=== PATIENT | male | born 1995 | race Caucasian/White ===

== ENCOUNTER 2017-02-16 12:21 | Emergency (ER) | payer OTHER ==
[~2017-02-16] VITALS: Ht 170.2 cm; Wt 112.5 kg
--- OUTSIDE RECORDS SUMMARY | 2017-02-16 12:28 | XMS REPORT | Continuity of care Document ---
Author Author GENERATED, SYSTEM Organization Unknown Address Unknown Phone Unavailable Purpose Hospital Course Allergies, Adverse Reactions, Alerts * Latex Allergy has not been assessed. * IV Contrast Allergy has not been assessed. Problems No relevant problems exist. Procedures No relevant procedures performed. Medication Medication reconciliation has not been performed. Results
--- OUTSIDE RECORDS SUMMARY | 2017-02-16 12:28 | XMS REPORT | Continuity of care Document ---
Author Author GENERATED, SYSTEM Organization Unknown Address Unknown Phone Unavailable Purpose Hospital Course Allergies, Adverse Reactions, Alerts * Latex Allergy has not been assessed. * IV Contrast Allergy has not been assessed. Problems No relevant problems exist. Procedures No relevant procedures performed. Medication Medication reconciliation has not been performed. Results Chemistry from 03/02/2014 2:30 AMSODIUM 135 MMOL/L L (136-145 MMOL/L) POTASSIUM 4.3 MMOL/L (3.5-5.1 MMOL/L) CHLORIDE 99 MMOL/L (98-107 MMOL/L) TCO2 29.6 MMOL/L (21.0-32.0 MMOL/L) ANION GAP 6.4 MMOL/L L (8.0-16.0 MMOL/L) BUN 13 MG/DL (7-18 MG/DL) CREATININE 0.78 MG/DL (0.63-1.13 MG/DL) BUN/CREATININE RATIO 16.7 (9.1-17.0 ) GLUCOSE 93 MG/DL (65-99 MG/DL) GFR EST NON AFR HONDURAN >=90 ML/MIN GFRA EST AFR AMER >=90 ML/MIN CALCIUM 9.0 MG/DL (8.5-10.1 MG/DL) BILIRUBIN TOTAL 0.34 MG/DL (0.20-1.00 MG/DL) TOTAL PROTEIN 7.9 GM/DL (6.4-8.2 GM/DL) ALBUMIN 4.3 GM/DL (3.4-5.0 GM/DL) GLOBULIN 3.6 GM/DL H (2.3-3.5 GM/DL) A/G RATIO 1.2 MG/DL L (1.5-2.2 MG/DL) ALK PHOS 102 U/L (46-116 U/L) ALT (SGPT) 34 U/L (12-78 U/L) AST (SGOT) 21 U/L (15-37 U/L) Hematology from 03/02/2014 2:30 AMWBC 11.6 X10e3/UL H (3.6-11.2 X10e3/UL) RBC 5.20 X10e6/UL (4.06-5.63 X10e6/UL) HEMOGLOBIN 15.7 G/DL (12.5-16.3 G/DL) HEMATOCRIT 45.8 % (36.7-47.1 %) MCV 88.1 FL (80.0-100.0 FL) MCH 30.1 PG (27.0-33.0 PG) MCHC 34.2 G/DL (32.0-36.0 G/DL) RDW 14.0 % (12.3-17.0 %) RDWSD 42.9 (37.1-47.8 ) PLATELET 298 X10e3/UL (159-386 X10e3/UL) MPV 7.9 FL (7.4-10.4 FL) AUTOMATED DIFF PERFORMED SEGS 57.8 % LYMPHOCYTES 32.8 % MONOCYTES 7.4 % EOSINOPHILS 1.4 % BASOPHILS 0.6 % ABSOLUTE NEUTROPHILS 6.7 X10e3/UL (1.8-7.8 X10e3/UL) ABSOLUTE LYMPHOCYTES 3.8 X10e3/UL H (1.0-3.0 X10e3/UL) ABSOLUTE MONOCYTES 0.9 X10e3/UL (0.3-1.0 X10e3/UL) ABSOLUTE EOSINOPHILS 0.2 X10e3/UL (0.0-0.5 X10e3/UL) ABSOLUTE BASOPHILS 0.1 X10e3/UL (0.0-0.2 X10e3/UL)
[2017-02-16 12:29] VITALS: Ht 170.2 cm; Wt 112.5 kg
--- OUTSIDE RECORDS SUMMARY | 2017-02-16 12:29 | XMS REPORT ---
Author Author GENERATED, SYSTEM Organization Unknown Address Unknown Phone Unavailable Care Team Providers Care Thread Marker Name Role Phone UNASSIGNED DOCTOR MD CHICO DOCTOR PP [phone] Reason For Visit Chief Complaint WORK COMP-WRIST CONTUSION Social History Functional Status Vital Signs Results DX Radiology from 08/11/2016 11:40 PMFOREARM LEFT 2 VIEWS History: forearm/wrist pain . Priors: None. Findings: There is no acute fracture. The wrist and elbow are in grossly normal alignment. Impression: Unremarkable radiographs of the left forearm. Electronically signed by: Nathan Tam MD Dictated: 08/12/2016 09:00 WRIST LEFT 3 VIEWS History: forearm/wrist pain . Technique: 3 view wrist Findings: There is no acute fracture or subluxation. The distal radius and ulna are intact. The carpals are normally aligned. Impression: Unremarkable radiographs of the left wrist. Electronically signed by: Nathan Tam MD Dictated: 08/12/2016 08:59 Problems Encounter Diagnosis No relevant problems exist. Encounters Encounter Diagnosis No relevant problems exist. Plan of Care Procedures No relevant procedures performed. Immunizations No immunizations administered or ordered. Hospital Course Hospital Discharge Instructions Allergies, Adverse Reactions, Alerts * Latex Allergy has not been assessed. * IV Contrast Allergy has not been assessed. Medication Medication reconciliation has not been performed.
--- OUTSIDE RECORDS SUMMARY | 2017-02-16 12:29 | XMS REPORT ---
Author Author GENERATED, SYSTEM Organization Unknown Address Unknown Phone Unavailable Care Team Providers Care Coordinator Of Online Programs Name Role Phone DO MERCHANT ROBERT PP Unavailable Reason For Visit Chief Complaint CONGESTION X 3 DAYS Social History Functional Status Vital Signs Results Problems Encounter Diagnosis No relevant problems exist. [...]
--- OUTSIDE RECORDS SUMMARY | 2017-02-16 12:29 | XMS REPORT ---
Author Author Zenia Infante Organization [facility] Address [address] [place], [place] [address] Care Team Providers Care Vp Clinical Name Role Phone Zenia Infante Unavailable [phone] PROBLEMS Type Condition ICD9-CM Code TIP81-VX Code Onset Dates Condition Status SNOMED Code Problem Hypertension I10 Active 68263724 Assessment Eczema L30.9 Dec, Active 94439369 ALLERGIES Substance Reaction Event Type Date Status N.K.D.A. Unknown Non Drug Allergy Dec, Unknown SOCIAL HISTORY No smoking Hx information available PLAN OF CARE VITAL SIGNS Height 5 ft 5 in in 2016-12-30 Weight 251 lb 8 oz lbs 2016-12-30 BMI 41.85 kg/m2 2016-12-30 Temperature 98.8 degrees Fahrenheit 2016-12-30 Heart Rate 92 /min 2016-12-30 Respiratory Rate 18 /min 2016-12-30 Oximetry 97 % 2016-12-30 Blood pressure systolic 130 mm Hg 2016-12-30 Blood pressure diastolic 70 mm Hg 2016-12-30 MEDICATIONS Medication Instructions Dosage Frequency Start Date End Date Duration Status Triamcinolone Acetonide 0.1 % Externally Twice a day 1 application to affected area 12h Dec, 10 days Active RESULTS No Results PROCEDURES Procedure Date Ordered Related Diagnosis Body Site OFFICE VISIT NEW PATIENT LEVEL 1 December 30, 2016 IMMUNIZATIONS No Known Immunizations
--- OUTSIDE RECORDS SUMMARY | 2017-02-16 12:29 | XMS REPORT | Referral Summary ---
Author Author [facility] Organization [facility] Address Unknown Phone Unavailable Care Team Providers Care Toll Collector Name Role Phone Sanjay Lemons Primary Care Physician [phone] Encounter [facility] [id number] Date(s): 09/13/15 - 09/13/[address] [facility] [address] [place] [address] Discharge Diagnosis: Tobacco user Discharge Diagnosis: Cough Discharge Diagnosis: Nasal congestion Discharge Disposition: 01-Home or Self Care Attending Physician: Humphrey Mercado MD Admitting Physician: Humphrey Mercado MD Vital Signs Most recent to 1 oldest [Reference Range]: Temperature Oral 36.8 degC [35.8-37.3 degC] (09/13/15 5:27 PM) Peripheral Pulse 95 bpm Rate [60-100 bpm] (09/13/15 6:31 PM) Heart Rate Monitored 80 bpm [60-100 bpm] (09/13/15 6:15 PM) Respiratory Rate 20 br/min [14-20 br/min] (09/13/15 6:31 PM) Blood Pressure 133/84 mmHg [90-140/60-90 mmHg] (09/13/15 6:31 PM) SpO2 97 % (09/13/15 6:31 PM) Problem List No Known Problems Allergies, Adverse Reactions, Alerts No Known Medication Allergies Medications minocycline 100 mg oral tablet 100 mg 1 tabs, Oral, BID, X 14 days, # 28 tabs, 0 Refill(s) Start Date: 09/13/15 Stop Date: 09/27/15 Status: Ordered Promethazine with Codeine 6.25 mg-10 mg/5 mL oral syrup 5 mL, Oral, q4hr, as needed for cough, # 120 mL, 0 Refill(s) Start Date: 09/13/15 Status: Ordered Results No data available for this section Immunizations No data available for this section Procedures No data available for this section Social History Social History Type Response Smoking Status Never smoker Assessment and Plan No data available for this section
--- OUTSIDE RECORDS SUMMARY | 2017-02-16 12:29 | XMS REPORT ---
Author Author GENERATED, SYSTEM Organization Unknown Address Unknown Phone Unavailable Care Team Providers Care Machine Captain Name Role Phone DO MERCHANT ROBERT PP Unavailable Reason For Visit Chief Complaint HARD TO BREATH SORE THROAT Social History Functional Status Vital Signs Results [...]
--- OUTSIDE RECORDS SUMMARY | 2017-02-16 12:29 | XMS REPORT ---
Author Author GENERATED, SYSTEM Organization Unknown Address Unknown Phone Unavailable Care Team Providers Care Jewelry Inspector Name Role Phone UNASSIGNED DOCTOR MD CHICO DOCTOR PP [phone] Reason For Visit Chief Complaint ACUTE BRONCHITIS, POSSIBLE EARLY RLL,COMUNITY ACQUIRED PNEUMONIA Social History Functional Status Vital Signs Results DX Radiology from 10/13/2016 10:22 AMCHEST 2 VIEWS History: cough. Technique: 2 VIEW CHEST Priors: 08/02/2016 Findings: Since prior study there has been development of a mild right lower lobe pneumonia. The heart size within normal limits. The left lung appears clear. No pneumothorax or pleural effusions identified Impression: Mild right lower lobe pneumonia. Electronically signed by: Nathan Tam MD Dictated: 10/13/2016 11:39 Problems Encounter Diagnosis No relevant problems exist. [...]
--- OUTSIDE RECORDS SUMMARY | 2017-02-16 12:29 | XMS REPORT | Continuity of Care Document ---
Author Author [facility] Organization [facility] Address Unknown Phone Unavailable Allergies Active Description Code Type Severity Reaction Onset Reported/Identified Relationship to Patient Clinical Status Yes No Known Medication Allergies NKMA N/A N/A 09/13/2015 Medications Problems Date Dx Coded Attending Type Code Diagnosis Diagnosed By 09/22/2015 Humphrey Mercado MD Final F17.210 Nicotine dependence, cigarettes, uncomplicated 09/22/2015 Humphrey Mercado MD Reason R05 Cough 09/22/2015 Humphrey Mercado MD Final R09.81 Nasal congestion 01/02/2017 CHELE CALABRESE [id number] Insect bite (nonvenomous), left knee, initial encounter 01/02/2017 CHELE CALABRESE Z29239 Personal history of nicotine dependence Procedures Results Encounters ACCT No. Visit Date/Time Discharge Status Pt. Type Provider Facility Loc./Unit Complaint [id number] 09/13/2015 16:37:00 2014 18:32:00 DIS Emergency Humphrey Mercado MD [facility] ED Conggestion and cough
--- OUTSIDE RECORDS SUMMARY | 2017-02-16 12:29 | XMS REPORT ---
Author Author GENERATED, SYSTEM Organization Unknown Address Unknown Phone Unavailable Care Team Providers Care Integration Aide Name Role Phone UNASSIGNED DOCTOR , DOCTOR PP [phone] Reason For Visit Chief Complaint POSSIBLE SPIDER BITE, LEFT LEG Social History Functional Status Vital Signs Results [...]
--- OUTSIDE RECORDS SUMMARY | 2017-02-16 12:29 | XMS REPORT ---
Author Author GENERATED, SYSTEM Organization Unknown Address Unknown Phone Unavailable Care Team Providers Care Auto Body Builder Apprentice Name Role Phone DO MERCHANT ROBERT PP Unavailable Reason For Visit Chief Complaint CONGESTION X 3 DAYS,LEFT BEFORE TRIAGE Social History Functional Status Vital Signs Results [...]
--- OUTSIDE RECORDS SUMMARY | 2017-02-16 12:29 | XMS REPORT | Summary of Care ---
Author Author Kingsley Lemons D.O. Organization Unknown Address [address], [place] [address] Phone Unavailable Care Team Providers Care Engineering Inspection Assistant Name Role Phone Kingsley Lemons D.O. Unavailable Unavailable Beto Rodriguez M.D. Unavailable Unavailable Kingsley Lemons PP Unavailable Unavailable Unavailable Functional Status Functional Status Health Issues* Name Dates Details Functional status health issues are not documented Status: Cognitive Status Health Issues* Name Dates Details Cognitive status health issues are not documented Status: Problems Name Dates Details Microalbuminuria (791.0, R80.9) Status: Active Acne (706.1, L70.9) Status: Active Irritable bowel syndrome (564.1, K58.9) Status: Active Rhinitis (472.0, J31.0) Status: Active Anxiety and depression (300.4, F41.8) Status: Active Blood pressure elevated (796.2, R03.0) Status: Active Acute bronchitis (466.0, J20.9) Status: Active Medications Name Dates Details Benzoyl Peroxide 5 % External Gel APPLY SPARINGLY TO THE AFFECTED AREA(S) ONCE OR TWICE DAILY DIRECTED. Quantity: 1 Kingsley Lemons D.O.* Started Jbbthw06.5 GM Tube Azithromycin 250 MG Oral Tablet TAKE 2 TABLETS ON DAY 1 THEN TAKE 1 TABLET A DAY FOR 4 DAYS. * Quantity: 1 Refills: 0 Beto Rodriguez M.D.* Started 20-Nov-2014 Active6 Tablet Bottle Allergies and Adverse Reactions Name Dates Details No Known Drug Allergies Status: Active Past Medical History Name Dates Details Diarrhea (787.91, R19.7) Status: Auto Complete Nausea with vomiting (787.01, R11.2) Status: Auto Complete History of Rib pain on left side (786.50, R07.81) Status: Resolved History of Strain of thoracic region (847.1, S29.012A) Status: Resolved Procedures Procedure Dates Details Procedures not documented Immunization Name Dates Details Immunizations not documented Family History Mother* Name Dates Details Family history of Benign essential hypertension (401.1, I10) Status: Active Family history of diabetes mellitus (V18.0, Z83.3) Status: Active Father* Name Dates Details Family history of Benign essential hypertension (401.1, I10) Status: Active Social History Name Dates Details Smoking Status* Smoker. current status unknown Vital Signs Date Test Result Details 20-Nov-2014 11:54 BP Systolic 140 mm[Hg] Status: BP Diastolic 78 mm[Hg] Status: Heart Rate 80 /min Status: Respiration Rate 16 /min Status: Temperature 97.3 f Status: Weight 228 lb Status: Height 65 in Status: Body Mass Index Calculated 37.94 kg/m2 Status: Body Surface Area Calculated 2.09 m2 Status: Results Date Description Value Details Results not documented Plan of Care Planned Observations* Name Dates Details Planned Goals not documented Goal Planned Encounters* Appointment; Provider: Kingsley Lemons On 27-Nov-2014 10:30 Instructions * Instructions not documented Encounters Appointment; Beto Rodriguez Encounter Diagnosis: Problem not documented On 20-Nov-2014 11:50 Appointment; Sanjay Mclain Encounter Diagnosis: Problem not documented On 27-Aug-2014 09:00 Appointment; Kingsley Lemons Encounter Diagnosis: Problem not documented On 27-Jun-2014 13:15 Appointment; Kingsley Lemons Encounter Diagnosis: Problem not documented On 06-Jun-2014 09:45 Appointment; Kingsley Lemons Encounter Diagnosis: Problem not documented On 16:00 Appointment; Kingsley Lemons Encounter Diagnosis: Problem not documented On 15:45 Appointment; Kingsley Lemons Encounter Diagnosis: Problem not documented On 13-Mar-2014 14:30 Appointment; Kingsley Lemons Encounter Diagnosis: Problem not documented On 03-Mar-2014 16:00 Appointment; Kingsley Lemons Encounter Diagnosis: Problem not documented On 25-Feb-2014 10:15 Appointment; Kingsley Lemons Encounter Diagnosis: Problem not documented On 27-Jan-2014 14:30 Appointment; Kingsley Lemons Encounter Diagnosis: Problem not documented On 24-Jan-2014 10:00 Appointment; Kingsley Lemons Encounter Diagnosis: Problem not documented On 20-Jan-2014 08:45 Appointment; Kingsley Lemons Encounter Diagnosis: Problem not documented On 18-Dec-2013 09:45
--- OUTSIDE RECORDS SUMMARY | 2017-02-16 12:29 | XMS REPORT | Summary of Care ---
Author Author Beto Rodriguez M.D. Organization Unknown Address [address] [place], [place] [id number] Phone Unavailable Care Team Providers Care Snowmobile Mechanic Name Role Phone Kingsley Lemons D.O. Unavailable [...] DIRECTED. Quantity: 1 Kingsley Lemons D.O.* Started Ehbysg62.5 GM Tube Azithromycin 250 MG Oral Tablet [...] documented On 27-Jun-2014 13:15 Appointment; Kingsley Lemons Diagnosis: Problem not documented On 06-Jun-2014 09:45 [...]
--- OUTSIDE RECORDS SUMMARY | 2017-02-16 12:29 | XMS REPORT ---
Author Author GENERATED, SYSTEM Organization Unknown Address Unknown Phone Unavailable Care Team Providers Care Staff Pharmacist Name Role Phone UNASSIGNED DOCTOR MD CHICO DOCTOR PP [phone] Reason For Visit Chief Complaint ACUTE BRONCHITIS Social History Functional Status Vital Signs Results DX Radiology from 07/01/2016 12:07 PMCHEST 2 VIEWS History: cough. Technique: 2 VIEW CHEST Priors: 11/20/15 Findings: The cardiac silhouette and pulmonary vasculature are within normal limits. There are no acute infiltrates or effusions. Impression: Negative chest Electronically signed by: Fuentes Vogel MD Dictated: 07/01/2016 13:33 Problems Encounter Diagnosis No relevant problems exist. [...]
--- OUTSIDE RECORDS SUMMARY | 2017-02-16 12:29 | XMS REPORT ---
Author Author GENERATED, SYSTEM Organization Unknown Address Unknown Phone Unavailable Care Team Providers Care Pecan Cleaner Name Role Phone UNASSIGNED DOCTOR , DOCTOR PP [phone] Reason For Visit Chief Complaint ACUTE BRONCHITIS Social History Functional Status Vital Signs Results DX Radiology from 08/02/2016 10:17 AMCHEST 2 VIEWS History: cough. Technique: 2 VIEW CHEST Priors: 07/17/2016 Findings: No acute infiltrate, pneumothorax or pleural effusions are identified. The heart size is normal. Impression: No evidence acute cardiopulmonary process. Electronically signed by: Nathan Tam MD Dictated: 08/02/2016 10:31 Problems Encounter Diagnosis No relevant problems exist. [...]
--- OUTSIDE RECORDS SUMMARY | 2017-02-16 12:29 | XMS REPORT ---
Author Author GENERATED, SYSTEM Organization Unknown Address Unknown Phone Unavailable Care Team Providers Care Aoc Operations Intelligence Officer Name Role Phone UNASSIGNED DOCTOR , DOCTOR PP [phone] Reason For Visit Chief Complaint FEELS DEHYDRATED, CONGESTED Social History Functional Status Vital Signs Results Chemistry from 01/14/2016 10:40 PMSODIUM 138 MMOL/L (136-145 MMOL/L) POTASSIUM 3.6 MMOL/L (3.5-5.1 MMOL/L) CHLORIDE 106 MMOL/L (98-107 MMOL/L) TCO2 24.7 MMOL/L (21.0-32.0 MMOL/L) *ANION GAP 7.3 MMOL/L L (8.0-16.0 MMOL/L) BUN 16 MG/DL (7-18 MG/DL) CREATININE 0.87 MG/DL (0.70-1.30 MG/DL) *BUN/CREATININE RATIO 18.4 H (9.1-17.0 ) GLUCOSE 94 MG/DL (65-99 MG/DL) *GFR EST NON AFR KOSOVAN >90 ML/MIN *GFRA EST AFR AMER >90 ML/MIN CALCIUM 8.2 MG/DL L (8.5-10.1 MG/DL) BILIRUBIN TOTAL 0.60 MG/DL (0.20-1.00 MG/DL) TOTAL PROTEIN 6.8 GM/DL (6.4-8.2 GM/DL) ALBUMIN 3.9 GM/DL (3.4-5.0 GM/DL) *GLOBULIN 2.9 GM/DL (2.3-3.5 GM/DL) *A/G RATIO 1.3 MG/DL L (1.5-2.2 MG/DL) ALK PHOS 80 U/L (46-116 U/L) ALT (SGPT) 50 U/L (14-59 U/L) AST (SGOT) 87 U/L H (15-37 U/L) LIPASE 113 U/L (73-393 U/L) Hematology from 01/14/2016 9:46 PMWBC 17.9 X10e3/UL H (3.6-11.2 X10e3/UL) RBC 5.22 X10e6/UL (4.06-5.63 X10e6/UL) HEMOGLOBIN 15.2 G/DL (12.5-16.3 G/DL) HEMATOCRIT 46.1 % (36.7-47.1 %) *MCV 88.4 FL (80.0-100.0 FL) *MCH 29.1 PG (27.0-33.0 PG) *MCHC 32.9 G/DL (32.0-36.0 G/DL) *RDW 13.3 % (12.3-17.0 %) *RDWSD 40.7 (37.1-47.8 ) PLATELET 123 X10e3/UL L (159-386 X10e3/UL) *MPV 9.1 FL (7.4-10.4 FL) AUTOMATED DIFF PERFORMED SEGS 72.9 % *LYMPHOCYTES 17.8 % *MONOCYTES 7.4 % *EOSINOPHILS 0.8 % *BASOPHILS 1.1 % *ABSOLUTE NEUTROPHILS 13.00 X10e3/UL H (1.80-7.80 X10e3/UL) *ABSOLUTE LYMPHOCYTES 3.20 X10e3/UL H (1.00-3.00 X10e3/UL) *ABSOLUTE MONOCYTES 1.30 X10e3/UL H (0.30-1.00 X10e3/UL) *ABSOLUTE EOSINOPHILS 0.10 X10e3/UL (0.00-0.50 X10e3/UL) *ABSOLUTE BASOPHILS 0.20 X10e3/UL (0.00-0.20 X10e3/UL) *PLATELET SLIDE REVIEW CLUMPING SEEN A (ADEQUATE ) Urinalysis from 01/14/2016 8:40 PM*URINE COLOR YELLOW (STRAW/YELL/DK YELL ) *URINE APPEARANCE CLEAR (CLEAR ) URINE PH 6.0 (5.0-8.0 ) URINE SPECIFIC GRAVITY 1.015 (<=1.005->=1.030 ) *URINE GLUCOSE NEGATIVE MG/DL (NEGATIVE MG/DL) *URINE BILIRUBIN NEGATIVE (NEGATIVE ) *URINE KETONES NEGATIVE MG/DL (NEGATIVE MG/DL) *URINE BLOOD TRACE-INTACT A (NEGATIVE ) *URINE PROTEIN NEGATIVE MG/DL (NEGATIVE MG/DL) *URINE UROBILINOGEN 0.2 EU/DL (0.2-1.0 EU/DL) *URINE NITRITES NEGATIVE (NEGATIVE ) *URINE LEUKOCYTES NEGATIVE (NEGATIVE ) *MICROSCOPIC EXAM PERFORMED PERFORMED *WBC URINE 0-1 /HPF (0-5 /HPF) *RBC URINE 1-5 /HPF A (0-1 /HPF) *SQUAMOUS EP. CELLS FEW /LPF (NEG-FEW /LPF) Coagulation from 01/14/2016 10:40 PM*PROTHROMBIN TIME 10.8 SECONDS (9.4-11.5 SECONDS) *INR 1.0 (0.9-1.1 ) Problems Encounter Diagnosis No relevant problems exist. [...]
--- OUTSIDE RECORDS SUMMARY | 2017-02-16 12:29 | XMS REPORT | Summary of Care ---
Author Author Kingsley Lemons D.O. Organization Unknown Address [address], [place] [address] Phone Unavailable Care Team Providers Care Cash Processing Specialist Name Role Phone Kingsley Lemons Unavailable Unavailable Unavailable Unavailable Functional Status Functional Status Health Issues* Name Dates Details No known functional status health issues Status: Cognitive Status Health Issues* Name Dates Details No known cognitive status health issues Status: Problems Name Dates Details Rib pain on left side (786.50, R07.81) Status: Active Microalbuminuria (791.0, R80.9) Status: Active Strain of thoracic region (847.1, S29.012A) Status: Active Anxiety and depression (300.4, F41.8) Status: Active Irritable bowel syndrome (564.1, K59.9) Status: Active Acne (706.1, L70.9) Status: Active Rhinitis (472.0, J31.0) Status: Active Medications Name Dates Details Naproxen 500 MG Oral Tablet TAKE 1 TABLET EVERY 12 HOURS WITH FOOD NEEDED. Quantity: 10 Tablet * Started 25-Feb-2014 ActiveCyclobenzaprine HCl - 10 MG Oral Tablet ONE TABLET BY MOUTH EVERY HS * Quantity: 5 Tablet Refills: 0 * Started 25-Feb-2014 ActiveVenlafaxine HCl ER 37.5 MG Oral Capsule Extended Release 24 Hour TAKE 1 CAPSULE ONCE DAILY FOR THREE DAYS THEN TAKE 2 DAILY FOR 3 WEEKS WITH FOOD. * Quantity: 45 Capsule Extended Release 24 Hour Refills: 0 * Started 25-Feb-2014 ActiveDicyclomine HCl - 20 MG Oral Tablet TAKE 1 TABLET 4 TIMES DAILY FOR ABDOMINAL CRAMPING * Quantity: 30 Tablet Refills: 0 * Started 03-Mar-2014 ActiveBenzoyl Peroxide 5 % External Gel APPLY SPARINGLY TO THE AFFECTED AREA(S) ONCE OR TWICE DAILY DIRECTED. * Quantity: 1X42.5 GM Tube Refills: 0 * Started ActiveNorel AD 4-10-325 MG Oral Tablet TAKE 1 TABLET EVERY 4-6 HRS WHILE SYMPTOMS PERSIST, DO NOT TAKE MORE THAN 6 TABLETS IN 24 HRS * Quantity: 20 Tablet Refills: 0 * Started Active Allergies and Adverse Reactions Name Dates Details No Known Drug Allergies Status: Active Past Medical History Name Dates Details Diarrhea (787.91, R19.7) Status: Auto Complete Nausea with vomiting (787.01, R11.2) Status: Auto Complete Procedures Procedure Dates Details Surgical history not documented Procedures not documented Immunization Name Dates Details Immunizations not documented Family History Mother* Name Dates Details Benign essential hypertension (401.1, I10) Status: Active Family history of diabetes mellitus (V18.0, Z83.3) Status: Active Father* Name Dates Details Benign essential hypertension (401.1, I10) Status: Active Social History Name Dates Details Current smoker (305.1, F17.200) Smoking Status* Smoker. current status unknown Vital Signs Date Test Result Details 16:40 Heart Rate 74 /min Status: Temperature 98.6 f Status: Weight 223.5 lb Status: 16:12 Heart Rate 84 /min Status: Temperature 98.4 f Status: Weight 224 lb Status: Results Date Description Value Details Results not documented Plan of Care Instructions* Instructions not documented Planned Observations* Name Dates Details Planned Goals not documented Goal Instructions * No Known Instructions Encounters Appointment; Kingsley Lemons Encounter Diagnosis: Problem not [...]
--- OUTSIDE RECORDS SUMMARY | 2017-02-16 12:29 | XMS REPORT ---
Author Author GENERATED, SYSTEM Organization Unknown Address Unknown Phone Unavailable Care Team Providers Care Check Pilot Name Role Phone DO MERCHANT ROBERT PP Unavailable Reason For Visit Chief Complaint MIGRAINE PASSED OUT LAST NIGHT Social History Functional Status Vital Signs Results [...]
--- OUTSIDE RECORDS SUMMARY | 2017-02-16 12:29 | XMS REPORT ---
Author Author GENERATED, SYSTEM Organization Unknown Address Unknown Phone Unavailable Care Team Providers Care Director Of Food And Nutrition Services Name Role Phone UNASSIGNED DOCTOR MD CHICO DOCTOR PP [phone] Reason For Visit Chief Complaint TIGHTNESS IN CHEST, DOESNT FEEL GOOD Social History Functional Status Vital Signs Results DX Radiology from 07/17/2016 9:30 AMCHEST 2 VIEWS History: cough. Technique: 2 VIEW CHEST Priors: 07/01/2016 Findings: No acute infiltrate, pneumothorax or pleural effusions are identified. The heart size is normal. Impression: No evidence of acute cardiopulmonary process Electronically signed by: Nathan Tam MD Dictated: 07/17/2016 10:00 Problems Encounter Diagnosis No relevant problems exist. [...]
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
[2017-02-16] MEDS ORDERED: NO HOME MEDS (12:54)
--- OUTSIDE RECORDS SUMMARY | 2017-02-16 12:54 | XMS REPORT ---
Author Author GENERATED, SYSTEM Organization Unknown Address Unknown Phone Unavailable Care Team Providers Care Global Creative Chairman Name Role Phone UNASSIGNED DOCTOR MD CHICO DOCTOR PP [phone] Reason For Visit Chief Complaint ACUTE BRONCHITIS, [...]
--- OUTSIDE RECORDS SUMMARY | 2017-02-16 12:54 | XMS REPORT | Continuity of care Document ---
[...] MG/DL (65-99 MG/DL) GFR EST NON AFR [place] >=90 ML/MIN GFRA EST AFR AMER >=90 [...]
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
--- OUTSIDE RECORDS SUMMARY | 2017-02-16 12:54 | XMS REPORT ---
Author Author GENERATED, SYSTEM Organization Unknown Address Unknown Phone Unavailable Care Team Providers Care Auto Servicer Name Role Phone UNASSIGNED DOCTOR MD CHICO DOCTOR PP [phone] Reason For Visit Chief Complaint TIGHTNESS IN [...]
--- OUTSIDE RECORDS SUMMARY | 2017-02-16 12:55 | XMS REPORT ---
Author Author GENERATED, SYSTEM Organization Unknown Address Unknown Phone Unavailable Care Team Providers Care Speed Runner Name Role Phone DO MERCHANT ROBERT PP [...]
--- OUTSIDE RECORDS SUMMARY | 2017-02-16 12:55 | XMS REPORT ---
Author Author GENERATED, SYSTEM Organization Unknown Address Unknown Phone Unavailable Care Team Providers Care Junior Estimator Name Role Phone UNASSIGNED DOCTOR MD CHICO DOCTOR PP [phone] Reason For Visit Chief Complaint WORK COMP-WRIST [...]
--- OUTSIDE RECORDS SUMMARY | 2017-02-16 12:55 | XMS REPORT ---
Author Author GENERATED, SYSTEM Organization Unknown Address Unknown Phone Unavailable Care Team Providers Care Lithograph Press Feeder Name Role Phone UNASSIGNED DOCTOR MD CHICO DOCTOR PP [phone] Reason For Visit Chief Complaint ACUTE BRONCHITIS [...]
--- OUTSIDE RECORDS SUMMARY | 2017-02-16 12:55 | XMS REPORT ---
Author Author GENERATED, SYSTEM Organization Unknown Address Unknown Phone Unavailable Care Team Providers Care Director Enterprise Systems Name Role Phone DO MERCHANT ROBERT PP [...]
--- OUTSIDE RECORDS SUMMARY | 2017-02-16 12:55 | XMS REPORT | Continuity of Care Document ---
Author Author [facility] Organization [facility] Address Unknown Phone Unavailable Allergies Active Description [...] Final R09.81 Nasal congestion 01/02/2017 CHELE CALABRESE [id number] Insect bite (nonvenomous), left knee, initial encounter 01/02/2017 CHELE CALABRESE [id number] Personal history of nicotine dependence Procedures Results Encounters ACCT No. Visit Date/Time Discharge Status Pt. Type Provider Facility Loc./Unit Complaint [id number] 09/13/2015 16:37:00 2014 18:32:00 DIS Emergency Humphrey Mercado MD [facility] ED Conggestion and cough
--- OUTSIDE RECORDS SUMMARY | 2017-02-16 12:55 | XMS REPORT ---
Author Author GENERATED, SYSTEM Organization Unknown Address Unknown Phone Unavailable Care Team Providers Care Manager Progressive Care Name Role Phone UNASSIGNED DOCTOR , DOCTOR PP [phone] Reason For Visit Chief Complaint FEELS DEHYDRATED, [...] MG/DL (65-99 MG/DL) *GFR EST NON AFR [place] >90 ML/MIN *GFRA EST AFR AMER >90 [...]
--- OUTSIDE RECORDS SUMMARY | 2017-02-16 12:55 | XMS REPORT ---
Author Author GENERATED, SYSTEM Organization Unknown Address Unknown Phone Unavailable Care Team Providers Care It Analyst Name Role Phone UNASSIGNED DOCTOR , DOCTOR PP [phone] Reason For Visit Chief Complaint ACUTE BRONCHITIS [...]
--- OUTSIDE RECORDS SUMMARY | 2017-02-16 12:55 | XMS REPORT ---
Author Author GENERATED, SYSTEM Organization Unknown Address Unknown Phone Unavailable Care Team Providers Care Traffic Workforce Representative Name Role Phone DO MERCHANT ROBERT PP [...]
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
--- OUTSIDE RECORDS SUMMARY | 2017-02-16 12:55 | XMS REPORT ---
Author Author GENERATED, SYSTEM Organization Unknown Address Unknown Phone Unavailable Care Team Providers Care Airborne Mission Systems Superintendent Name Role Phone DO MERCHANT ROBERT PP [...]
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
[2017-02-16 13:50] LABS: HCT - HEMATOCRIT 45.9 % (41-53); HGB - HEMOGLOBIN 15.5 GM/DL (13.5-17.5); MEAN CORPUSCULAR HGB 29.4 UUG (26-34); MEAN CORPUSCULAR HGB CONC(MCHC 33.8 GM/DL (31-37); MEAN CORPUSCULAR VOLUME 87.1 UM3 (80-100); MEAN PLATELET VOLUME 9.8 UM3 (9.4-12.4); RED BLOOD COUNT 5.27 M/MM3 (4.50-5.90); WBC - WHITE BLOOD COUNT 16.4 T/MM3 (4.5-11.0)
--- NOTE | 2017-02-16 13:53 | NUR ---
CT PATIENT TO CT PER CART, STABLE.
[2017-02-16 13:59] LABS: ALBUMIN 4.4 G/DL (3.5-5.0); ALBUMIN/GLOBULIN RATIO 1.4 RATIO (1.1-2.2); ALKALINE PHOSPHATASE 78 U/L (38-126); ALT (SGPT) 52 U/L (21-72); ANION GAP 13 MEQ/L (5-15); AST (SGOT) 27 U/L (17-59); BUN/CREATININE RATIO 15 RATIO (6-26); CALCIUM 9.5 MG/DL (8.4-10.2); CHLORIDE 105 MEQ/L (98-107); CO2 - CARBON DIOXIDE 29 MEQ/L (22-30); CREATININE 0.8 MG/DL (0.8-1.5); GLOMERULAR FILTRATION RATE 122; GLUCOSE 89 MG/DL (75-110); POTASSIUM 4.6 MEQ/L (3.6-5); SODIUM 147 MEQ/L (134-144); TOTAL PROTEIN 7.5 G/DL (6.3-8.2)
[2017-02-16 14:02] LABS: BLOOD, URINE NEGATIVE (NEGATIVE); COLOR,URINE YELLOW (YELLOW); LEUKOCYTE ESTERASE ,URINE NEGATIVE (NEGATIVE); NITRITE,URINE NEGATIVE (NEGATIVE); UROBILINOGEN,URINE 0.2 EU/DL (NORMAL)
[2017-02-16 14:07] LABS: LYMPHOCYTES # (MANUAL) 2.6 T/MM3 (1-4.8); MONOCYTES # (MANUAL) 0.3 T/MM3 (0-0.8); NEUTROPHILS #(MANUAL)-ABSOLUTE 13.4 T/MM3 (1.8-7.7); TOTAL CELLS COUNTED 100 %
--- NOTE | 2017-02-16 14:09 | NUR ---
RETURN PATIENT BACK FROM CT PER CART,STABLE.
[2017-02-16] MEDS ORDERED: OXYCODONE/APAP 5mg/325mg TABLET PO ONE (14:15)
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
[2017-02-16] MEDS ORDERED: OXYC1TAB8 PO (15:07)
[2017-02-16] MEDS ORDERED: METH-310 PO (15:07)
[2017-02-16 15:12] VITALS: BP 136/67; PULSE 70; RESP 17; TEMP 98.2; O2SAT 97
== END 2017-02-16 15:13 | disposition home or self-care (01) ==
LOC: ED 12:21
DX: S29.012A Strain of muscle and tendon of back wall of thorax, initial encounter (principal); R51 Headache; V49.3XXA Car occupant (driver) (passenger) injured in unspecified nontraffic accident, initial encounter; Y93.89 Activity, other specified; Y92.89 Other specified places as the place of occurrence of the external cause; Y99.8 Other external cause status
CPT/HCPCS: 36415; 80053; 81003; 85025